=== PATIENT | female | born 1970 ===

== ENCOUNTER 2019-12-30 07:30 | Inpatient (IN) | payer OTHER ==
[~2019-12-30] VITALS: Ht 162.6 cm; Wt 95.3 kg
[2019-12-30] MEDS ORDERED: ZYRTEC PO (10:21)
[2019-12-30] MEDS ORDERED: COZAAR50 MG PO (10:21)
[2019-12-30] MEDS ORDERED: SINGUL PO (10:22)
[2019-12-30] MEDS ORDERED: WELLBUTRIN XL300 MG PO (10:22)
[2019-12-30] MEDS ORDERED: SYMTUZA 800-151 EACH PO (10:22)
[2019-12-30] MEDS ORDERED: VITACEL TABLET1 EACH PO (10:23)
[2020-01-06] MEDS ORDERED: ZYRTEC10 M3 (08:24)
[2020-01-06] MEDS ORDERED: SINGULAIR10 MG (08:24)
== END 2020-01-08 09:58 | disposition home or self-care (01) | DRG 743 ==
LOC: OB/GYN 01-06 05:55 → O/R 01-06 05:55 → OB/GYN 01-06 07:00
PROVIDERS: ADMIT Obstetrics & Gynecology; ATTEND Obstetrics & Gynecology
PROC: 0UB60ZX Excision of Left Fallopian Tube, Open Approach, Diagnostic (ICD-10-PCS; 2020-01-06)
PROC: 0DN80ZZ Release Small Intestine, Open Approach (ICD-10-PCS; 2020-01-06)
PROC: 0UT10ZZ Resection of Left Ovary, Open Approach (ICD-10-PCS; principal; 2020-01-06 07:00)
DX: D27.1 Benign neoplasm of left ovary (principal); N73.6 Female pelvic peritoneal adhesions (postinfective); N99.4 Postprocedural pelvic peritoneal adhesions; Z21 Asymptomatic human immunodeficiency virus [HIV] infection status; I10 Essential (primary) hypertension; Z20.828 Contact with and (suspected) exposure to other viral communicable diseases